=== PATIENT | male | born 1970 | race Caucasian/White ===

== ENCOUNTER 2017-06-07 07:02 | Day surgery (SDC) | payer OTHER ==
[2017-06-07] VITALS (13 sets, daily range): BP systolic 127–161; BP diastolic 81–98
[~2017-06-07] VITALS: Ht 185.4 cm; Wt 89.4 kg
[~2017-06-07 07:02] MED LIST: AMBIEN10 MG PO; ATRIPLA TABLET1 EACH PO; Bupivacaine w/Epi 0.25% 30ml Vial INJ ONE; CITRACAL + BON1 EACH PO; CRESTOR10 MG PO; LOVAZA1 GM PO; NIASPAN500 MG PO; NORVIR100 MG PO; PREZISTA75 MG PO; TRICOR54 MG PO
[2017-06-07] MEDS ORDERED: DESCOVY 200-251 EACH PO (07:42)
[2017-06-07] MEDS ORDERED: TIVICAY50 MG ORAL (07:42)
[2017-06-07] MEDS ORDERED: CLARITIN5 MG ORAL (07:42)
[2017-06-07] MEDS ORDERED: MULTIVITAMINS1 EAC2 ORAL (07:42)
[2017-06-07] MEDS ORDERED: CIALIS5 MG PO (07:42)
[2017-06-07] MEDS ORDERED: LR 1000ml 1,000 ML IVLG SCH (08:43)
[2017-06-07] MEDS ORDERED: Norco 7.5mg/325mg tab ORAL PRN (08:45)
[2017-06-07] MEDS ORDERED: Atropine Inj 1mg/10ml Syr IV PRN (08:45)
[2017-06-07] MEDS ORDERED: fentaNYL 100 mcg/2 mL IV PRN (08:45)
[2017-06-07] MEDS ORDERED: Meperidine 25mg/0.5ml Inj (FOR RIGORS ONLY) IV PRN (08:45)
[2017-06-07] MEDS ORDERED: Midazolam 2mg/2ml Inj IVP PRN (08:45)
[2017-06-07] MEDS ORDERED: Norco 5mg/325mg tab ORAL PRN ×2 (08:45→11:45)
[2017-06-07] MEDS ORDERED: Hydromorphone 0.5mg/0.5ml inj IVP PRN (08:45)
[2017-06-07] MEDS ORDERED: Ketorolac 30mg Inj IV PRN (08:45)
[2017-06-07] MEDS ORDERED: LORazepam Inj 2mg/ml 1ml IV PRN (08:45)
[2017-06-07] MEDS ORDERED: DiphenhydrAMINE 50mg/ml Inj IVP PRN (08:45)
[2017-06-07] MEDS ORDERED: oxyCODONE HCL/Acetaminophen 5/325mg ORAL PRN (08:45)
[2017-06-07] MEDS ORDERED: Ketorolac 60mg Inj IV PRN (08:45)
[2017-06-07] MEDS ORDERED: Metoclopramide 10mg/2ml Inj IVP PRN (08:45)
--- NOTE | 2017-06-07 08:45 | History and Physical Report ---
DATE OF ADMISSION: 06/07/2017 The patient is scheduled for surgery on 06/07/2017 REASON FOR ADMISSION: Umbilical hernia, left inguinal hernia. HISTORY OF PRESENT ILLNESS: This 47-year-old white male presents with a left inguinal hernia. He was returning from a trip to [facility] recently. He noted some left inguinal pain and noticed a bulge subsequently. He had some recent issues with constipation. The patient had a right inguinal hernia repair at the age of 5. PAST MEDICAL HISTORY/PREVIOUS SURGICAL HISTORY: See history of present illness. The patient has had bilateral arthroscopic shoulder surgery three years ago and again last August. He has also had some plastic surgery three years ago including a neck lift and a blepharoplasty. ALLERGIES: To penicillin. MEDICATIONS: Descovy, , multivitamins, , and Claritin. SOCIAL HISTORY: Tobacco, none. Alcohol, none. Occupation, marketing in sales. FAMILY HISTORY: Positive for heart disease and diabetes. REVIEW OF SYSTEMS: Positive findings include scleroderma. He has been HIV positive for 17 years. No history of opportunistic infections. PHYSICAL EXAMINATION: GENERAL: Reveals a well-developed and well-nourished white male, in no acute distress. HEENT: Normocephalic. Pupils are equal and reactive to light. There was no scleral icterus. NECK: Supple without adenopathy. LUNGS: Clear. HEART: Showed a regular rhythm without murmurs or gallops. ABDOMEN: Soft. There is a reducible umbilical hernia present. GENITALIA: Shows testes descended bilaterally. There was a reducible left inguinal hernia. There was no scrotal component. There was no hernia on the right groin. EXTREMITIES: Showed no clubbing, cyanosis, or edema. IMPRESSION: Umbilical hernia, left inguinal hernia. PLAN: The patient was advised to undergo an umbilical hernia repair as well as a left inguinal hernia repair with mesh. The nature, risks, and benefits of the procedure were explained. Shalom Heck M.D. DR: JULIANE JOB#: [id number] CC:
--- NOTE | 2017-06-07 08:48 | Anethesia Preoperative Eval ---
Anesthesia Pre-op PMH/ROS General Date of Evaluation: Jun 07, 2017 Time of Evaluation: 09:18 Anesthesiologist: Jace ASA Score: ASA 3 Mallampati Score Class I : Soft palate, uvula, fauces, pillars visible Class II: Soft palate, uvula, fauces visible Class III: Soft palate, base of uvula visible Class IV: Only hard plate visible Mallampati Classification: Class II Surgeon: Umang Diagnosis: L Inguinal Hernia, Umbilical Hernia Surgical Procedure: Repair L Inguinal Hernia, And Umbilical Hernia Anesthesia History: none Family History: no anesthesia problems Allergies: Coded Allergies: PENICILLINS (Verified Allergy, Intermediate, RASH, 06/07/17) Medications: see eMAR Past Medical History Cardiovascular: Reports: other - HL Gastrointestinal/Genitourinary: Reports: GERD, other - BPH Hematology/Immune: Reports: other - HIV PSxH Narrative: R IHR, Gum SX, L Hip SX, L Shoulder Arthroscopy Anesthesia Pre-op Phys. Exam Physician Exam Last Vital Signs Date Time Temp Pulse Resp B/P (MAP) Pulse Ox O2 Delivery O2 Flow Rate FiO2 06/07/17 07:48 97.2 71 20 128/88 96 Room Air Constitutional: NAD Neurologic: CN 2-12 intact Cardiovascular: RRR Respiratory: CTA Gastrointestinal: S/NT/ND Airway Exam Mallampati Score: Class III MO: full - Gum SX ROM: full Teeth: intact Anesthesia Pre-op A/P Risk Assessment & Plan Assessment: ASA 3 Plan: GA, BIS, Glidescope Status Change Before Surgery: No Pre-Antibiotics Dru Gram Ancef IV Given Within 1 Hr of Incision: Yes Time Given: 09:31 Carlos Mccormick MD Jun 07, 2017 08:48
--- NOTE | 2017-06-07 08:49 | Immediate Post-Op Evaluation ---
Immediate Post-Op Evalulation Immediate Post-Op Evalulation Procedure: Repair L Inguinal Hernia, And Umbilical Hernia Date of Evaluation: Jun 07, 2017 Time of Evaluation: 11:57 IV Fluids: 900 LR Blood Products: 0 Estimated Blood Loss: 15 Urinary Output: 0 Blood Pressure Systolic: 161 Blood Pressure Diastolic: 97 Pulse Rate: 99 Respiratory Rate: 16 O2 Sat by Pulse Oximetry: 100 Temperature (Fahrenheit): 97.4 Pain Score (1-10): 2 Nausea: No Vomiting: No Complications 0 Patient Status: awake, reacts, patent, extubated, none Hydration Status: adequate Dru Gram Ancef IV Given Within 1 Hr of Incision: Yes Time Given: 09:31 Carlos Mccormick MD Jun 07, 2017 08:49
--- NOTE | 2017-06-07 08:49 | 48 Hour Post Anesthesia Eval ---
Post Anesthesia Evaluation Procedure: Repair L Inguinal Hernia, And Umbilical Hernia Date of Evaluation: Jun 07, 2017 Time of Evaluation: 14:12 Blood Pressure Systolic: 138 0: 87 Pulse Rate: 76 Respiratory Rate: 18 Temperature (Fahrenheit): 98.4 O2 Sat by Pulse Oximetry: 100 Airway: patent Nausea: No Vomiting: No Pain Intensity: 2 Hydration Status: adequate Cardiopulmonary Status: Stable Mental Status/LOC: patient returned to baseline Follow-up Care/Observations: 0 Post-Anesthesia Complications: 0 Follow-up care needed: ready to discharge Carlos Mccormick MD Jun 07, 2017 08:49
[2017-06-07] MEDS ORDERED: LR 1000ml ONE (09:00)
[2017-06-07] MEDS ORDERED: Ketorolac 30mg Inj ONE (09:00)
[2017-06-07] MEDS ORDERED: Propofol 10mg/ml 20ml IV ONE (09:00)
[2017-06-07] MEDS ORDERED: fentaNYL 100 mcg/2 mL IV ONE (09:00)
[2017-06-07] MEDS ORDERED: Sterile Water Irrig 1000ml IRRIG ONE (09:00)
[2017-06-07] MEDS ORDERED: Neostigmine 1mg/ml 10ml Inj ONE (09:00)
[2017-06-07] MEDS ORDERED: NS Irrig 1000ml ONE (09:00)
[2017-06-07] MEDS ORDERED: Glycopyrrolate 0.2mg/ml 1ml Vial ONE (09:00)
[2017-06-07] MEDS ORDERED: Dexamethasone 4mg/ml vial ONE (09:00)
[2017-06-07] MEDS ORDERED: Midazolam 2mg/2ml Inj ONE (09:00)
[2017-06-07] MEDS ORDERED: Lidocaine 1% MPF 10mg/ml 5ml ONE (09:00)
[2017-06-07] MEDS ORDERED: Zemuron 50mg/5ml Inj IV ONE (09:00)
--- NOTE | 2017-06-07 09:24 | Pre-Procedure Note/Attestation ---
Pre-Procedure Note/Attestation Complete Prior to Procedure Planned Procedure: left Procedure Narrative: umbilical hernia repair with mesh, left inguinal hernia repair with mesh Indications for Procedure Pre-Operative Diagnosis: umbilical hernia, left inguinal hernia Attestation I attest that I discussed the nature of the procedure; its benefits; risks and complications; and alternatives (and the risks and benefits of such alternatives ), prior to the procedure, with the patient (or the patient's legal human resources hr representative). I attest that, if there was a reasonable possibility of needing a blood transfusion, the patient (or the patient's legal human resources hr representative) was given the [facility] standardized written summary, pursuant to the Wilbur Lissa Blood Safety Act ([place] Health and Safety Code # 1645, as amended). I attest that I re-evaluated the patient just prior to the surgery and that there has been no change in the patient's H&P, except as documented below:none Shalom Heck MD Jun 07, 2017 09:24
[2017-06-07] MEDS ORDERED: D5 1/2NS 1,000 ML IV SCH (11:45)
[2017-06-07] MEDS ORDERED: Tylenol #3 tab (300mg/30mg) ORAL PRN (11:45)
[2017-06-07] MEDS ORDERED: HYDROmorphone 1mg/ml Carpuject SUBQ PRN (11:45)
--- NOTE | 2017-06-07 11:49 | Brief Operative Note ---
Immediate Post Operative Note Operative Note Pre-op Diagnosis: umbilical hernia, left inguinal hernia Procedure: umbilical hernia repair with mesh, left inguinal hernia repair with mesh Post-op Diagnosis: umbilical hernia, incarcerated indirect left inguinal hernia Findings: consistent w/pre-op dx studies Surgeon: Chidi Heck MD Anesthesiologist: Jovan Mccormick MD Anesthesia: general Specimen: yes - indirect hernia sac Complications: none Condition: stable Fluids: 1000 ml Estimated Blood Loss: minimal Drains: none Packing: none Implant(s) used?: Yes - prolene mesh at both sites Shalom Heck MD Jun 07, 2017 11:49
--- NOTE | 2017-06-07 20:15 | Operative Note - Dictated ---
DATE OF OPERATION: 06/07/2017 PREOPERATIVE DIAGNOSIS: Umbilical hernia, left inguinal hernia. POSTOPERATIVE DIAGNOSIS: Umbilical hernia, left inguinal hernia, incarcerated indirect left inguinal hernia. PROCEDURE: 1. Umbilical hernia repair with mesh. 2. Left inguinal hernia repair with mesh. SURGEON: Shalom Heck M.D. ANESTHESIA: General endotracheal, Dr. Mccormick. INDICATIONS FOR SURGERY: This 47-year-old white male presented with a left inguinal bulge. The bulge was accentuated by coughing or straining. He also noticed occasional discomfort in the umbilical region. He was found to have an umbilical hernia as well as a left inguinal hernia. He was advised to undergo repair of both hernias with mesh. The nature, risks and benefits of the procedure were explained. OPERATIVE FINDINGS: The umbilical region contained a small umbilical hernia with a 1 centimeter defect. There was no extruded viscera in the hernia. The left inguinal hernia had a large indirect component with a thin sac and a piece of incarcerated omentum. OPERATIVE TECHNIQUE: With the patient in the supine position and after induction of adequate general endotracheal anesthesia, the abdomen and both groins were prepped and draped in sterile fashion. A time-out was called. The skin along the superior edge of the umbilicus was infiltrated with 0.25 Marcaine with epinephrine solution. A curved supraumbilical incision was made. The subcutaneous tissue was divided by sharp dissection with a scalpel. Several oozing points were cauterized. The hernia sac was carefully encircled with a Kaila clamp. The hernia sac was dissected off of the dermis of the umbilicus by electrocautery. Portions of the sac were excised and trimmed to the level of the rectus fascia. The underlying surface of the rectus fascia was palpated. There was some adherent preperitoneal fat. The segment of the preperitoneal fat were dissected with electrocautery. An oval piece of Prolene mesh was placed just below the fascial level. The mesh was tacked to the fascia with interrupted 2-0 Prolene horizontal mattress sutures. The sutures were tightened completing the repair. The fascial edges were reapproximated in transverse fashion with interrupted 2-0 Vicryl horizontal mattress sutures. The dermis of the umbilicus was tacked to the rectus fascia with a 2-0 Vicryl suture. The subcutaneous tissue was reapproximated with interrupted 3-0 Vicryl sutures. The skin was closed with running 4-0 Vicryl subcuticular stitch. Attention was turned to the left groin for left ilioinguinal nerve block was performed using 0.25 Marcaine with epinephrine solution. An incision was made two fingerbreadths above the inguinal ligament and parallel to the structure. The subcutaneous tissue was divided by sharp dissection with a scalpel. Several oozing points were cauterized. Jayson's fascia was divided by electrocautery. The aponeurosis of the external oblique was identified. An incision was made along the external oblique entering the inguinal canal. The ilioinguinal nerve was identified and dissected off the cord structures and retracted. The spermatic cord was mobilized at the level of the pubic tubercle. The cord had a thick protruding indirect hernia sac. The sac was opened distally revealing incarcerated omentum. The omentum was slowly dissected off of the inner surface of the hernia sac. The sac was trimmed near the level of the internal ring with the omentum reduced. The hernia sac was ligated with a 2-0 silk pursestring suture followed by a 2-0 silk suture ligature. The sac was amputated demonstrating retraction back into the internal ring. The fascial floor was then inspected. A strip of Prolene mesh was placed on the fascial floor. The medial aspect of the mesh was tacked to the pubic tubercle with a 2-0 Prolene suture. The inferior edge of the mesh was tacked to the shelving edge of the inguinal ligament with a running 2-0 Prolene suture. Lateral to the cord, the mesh was bisected placing one wing above and one wing below the cord. The superior edge of the mesh was tacked to the tendinous edge of transversalis with a running 2-0 Prolene suture. Lateral to the cord, the two wings were crossover and tacked to the internal oblique muscle completing the repair. The newly created internal ring was inspected and was found to be somewhat patulous, this was corrected by placing an 0 Prolene stitch on the mesh just medial to the cord. The wound was irrigated with normal saline. There was no evidence of hemorrhage. The ileal inguinal nerve was placed back in the inguinal ring. There was no impingement on the nerve. The external oblique layer was closed with running 2-0 Vicryl suture. Jayson's fascia was closed with interrupted 3-0 Vicryl sutures. The skin was closed with a running 4-0 Vicryl subcuticular stitch. Sterile dressings were applied. The patient tolerated the procedure well and was returned to the recovery room in stable condition. ESTIMATED BLOOD LOSS: 10 mL. Shalom Heck M.D. DR: ANDRÉS JOB#: [id number] CC:
== END 2017-06-07 14:25 | disposition home or self-care (01) ==
LOC: SUR 07:02
DX: K42.9 Umbilical hernia without obstruction or gangrene (principal); K40.30 Unilateral inguinal hernia, with obstruction, without gangrene, not specified as recurrent; K21.9 Gastro-esophageal reflux disease without esophagitis; N40.0 Benign prostatic hyperplasia without lower urinary tract symptoms; E78.5 Hyperlipidemia, unspecified; M34.9 Systemic sclerosis, unspecified; Z87.891 Personal history of nicotine dependence; Z88.0 Allergy status to penicillin
CPT/HCPCS: 49507; 49585; C1781; J0690; J1100; J1885; J2250; J2405; J2704; J2710; J2765; J3010; J7120; 94003; 94150; J2180